=== PATIENT | female | born 1945 | race Caucasian/White ===

== ENCOUNTER 2016-11-25 18:09 | Emergency (ER) | payer MEDICARE, MEDICAID ==
[2016-11-25 18:45] LABS: MEAN CORPUSCULAR HGB CONC 33.2 pg (28.0-36.0)
[2016-11-25 18:57] LABS: % BASOPHILS 0.4 % (0.0-2.0); % EOSINOPHILS 0.4 % (0.0-5.0); % LYMPHOCYTES 8.2 % (20.0-50.0); % MONOCYTES 6.6 % (2.0-10.0); % NEUTROPHILS 84.4 % (40.0-80.0); HEMATOCRIT 45.9 % (35.0-45.0); HEMOGLOBIN 15.3 gm/dL (11.7-16.1); MEAN CORPUSCULAR HEMOGLOBIN 29.9 pg (27.0-31.0); MEAN PLATELET VOLUME 7.7 fl; NEUTROPHILE ABSOLUTE 10.2 Th/cmm (1.8-8.0); PLATELET COUNT 267 Th/cmm (150-400); RED CELL DISTRIBUTION WIDTH 13.1 % (11.5-20.0)
[2016-11-25 19:04] LABS: INR 1.03 (0.5-1.4); PROTHROMBIN TIME (TEST) 10.7 SECONDS (9.5-11.5)
[2016-11-25 19:07] LABS: ALB/GLOB RATIO 1.8 (1.0-1.8); ALKALINE PHOSPHATASE 86 U/L (34-104); ANION GAP 11.9 (7.0-16.0); BILIRUBIN,TOTAL 1.4 mg/dL (0.3-1.0); BUN - UREA NITROGEN 14 mg/dL (7-25); CALCIUM SERUM 9.6 mg/dL (8.6-10.3); CARBON DIOXIDE 25.2 mEq/L (21.0-31.0); CHLORIDE 110 mEq/L (98-107); GLUCOSE 118 mg/dL (70-105); POTASSIUM SERUM 4.1 mEq/L (3.5-5.1); SGOT 35 U/L (13-39); SGPT/ALT 32 U/L (7-52); SODIUM SERUM 143 mEq/L (136-145)
--- NOTE | 2016-11-25 21:07 | ED Physician Chart ---
ED Chief Complaint/HPI - Patient Information Date Seen:: 11/25/16 Time Seen:: 18:20 Chief Complaint:: RIGHT KNEE PAIN History of Present Illness:: THIS IS A 71 YO FEMALE WHO SLIPPED AND FELL EARLIER TODAY INJURING HER RIGHT KNEE. SHE DENIES ALL OTHER INJURY. SHE DENIES DIABETES, HYPERTENSIO AND HEART DISEASE. Allergies:: Allergies Allergy/AdvReac Type Severity Reaction Status Date / Time No Known Allergies Allergy Verified 11/25/16 18:10 Vitals:: Vital Signs - 8 hr 11/25/16 18:11 Temp 100.8 F HR 93 RR 16 BP 159/96 O2 Sat % 95 Historian:: Patient Review:: Nurse's Note Reviewed ED Review of Systems - Review of Systems General/Constitutional: No fever, No chills, No weight loss, No weakness, No diaphoresis, No edema, No loss of appetite Skin: No skin lesions, No rash, No bruising Head: No headache, No light-headedness Eyes: No loss of vision, No pain, No diplopia ENT: No earache, No nasal drainage, No sore throat, No tinnitus Neck: No neck pain, No swelling, No thyromegaly, No stiffness, No mass noted Cardio Vascular: No chest pain, No palpitations, No PND, No orthopnea, No edema Pulmonary: No SOB, No cough, No sputum, No wheezing GI: No nausea, No vomiting, No diarrhea, No pain, No melena, No hematochezia, No constipation, No hematemesis G/U: No dysuria, No frequency, No hematuria Musculoskeletal: Bone or joint pain (RIGHT KNEE PAIN ), No back pain, No muscle pain Endocrine: No polyuria, No polydipsia Psychiatric: No prior psych history, No depression, No anxiety, No suicidal ideation Hematopoietic: No bruising, No lymphadenopathy Allergic/Immuno: No urticaria, No angioedema Neurological: No syncope, No focal symptoms, No weakness, No paresthesia, No headache, No seizure, No dizziness, No confusion, No vertigo ED Past Medical History - Past Medical History Obtainable: Yes Past Medical History: No significant medical hx Family History: None Social History: Non Smoker, No Alcohol, No Drug Use Surgical History: None Psychiatricy History: None Medication: Reviewed ED Physical Exam - Physical Examination General/Constitutional: Awake, Well-developed, well-nourished, Alert, No distress, GCS 15, Non-toxic appearing, Ambulatory Head: Atraumatic Eyes: Lids, conjuctiva normal, PERRL, EOMI Skin: Nl inspection, No rash, No skin lesions, No ecchymosis, Well hydrated, No lymphadenopathy ENMT: External ears, nose nl, Nasal exam nl, Lips, teeth, gums nl Neck: Nontender, Full ROM w/o pain, No JVD, No nuchal rigidity, No bruit, No mass, No stridor Respiratory: Nl effort/Exclusion, Clear to Auscultation, No Wheeze/Rhonchi/Rales Cardio Vascular: RRR, No murmur, gallop, rubs, NL S1 S2 GI: No tenderness/rebounding/guarding, No organomegaly, No hernia, Normal BS's, Nondistended, No mass/bruits, No McBurney tenderness : No CVA tenderness Extremities: Full ROM, normal strength in all extremities, No edema, Normal digits & nails Other Extremities comments:: THERE IS SOME MILD TENDERNESS OF THE RIGHT KNEE CAP AREA WITH NORMAL ROM. THE PATIENT ALSO WAS ABLE TO AMBULATE ON HER KNEE WITHOUT DIFFICULTY Neuro/Psych: Alert/oriented, DTR's symmetric, Normal sensory exam, Normal motor strength, Judgement/insight normal, Mood normal, Normal gait, No focal deficits Misc: normal gait, Normal back, No paraspinal tenderness ED Labs/Radiology/EKG Results - Lab Results Results: Laboratory Tests 11/25/16 11/25/16 11/25/16 18:30 18:30 18:30 WBC 12.0 H RBC 5.10 Hgb 15.3 Hct 45.9 H MCV 90.0 MCH 29.9 MCHC Differential 33.2 RDW 13.1 Plt Count 267 MPV 7.7 Neutrophils % 84.4 H Lymphocytes % 8.2 L Monocytes % 6.6 Eosinophils % 0.4 Basophils % 0.4 PT 10.7 INR 1.03 Sodium 143 Potassium 4.1 Chloride 110 H Carbon Dioxide 25.2 Anion Gap 11.9 BUN 14 Creatinine 1.0 Est GFR ( Amer) TNP Est GFR (Non-Af Amer) TNP BUN/Creatinine Ratio 14.0 Glucose 118 H Whole Bld Lactic Acid Calcium 9.6 Total Bilirubin 1.4 H AST 35 ALT 32 Alkaline Phosphatase 86 Troponin I Total Protein 6.8 Albumin 4.4 Globulin 2.4 Albumin/Globulin Ratio 1.8 TSH 11/25/16 11/25/16 11/25/16 18:30 18:30 18:30 WBC RBC Hgb Hct MCV MCH MCHC Differential RDW Plt Count MPV Neutrophils % Lymphocytes % Monocytes % Eosinophils % Basophils % PT INR Sodium Potassium Chloride Carbon Dioxide Anion Gap BUN Creatinine Est GFR ( Amer) Est GFR (Non-Af Amer) BUN/Creatinine Ratio Glucose Whole Bld Lactic Acid 1.65 Calcium Total Bilirubin AST ALT Alkaline Phosphatase Troponin I 0.02 Total Protein Albumin Globulin Albumin/Globulin Ratio TSH 0.96 - Radiology Results Results: RIGHT KNEE X-RAY = NAD ED Assessment - Assessment General Assessment: CONTUSION OF THE RIGHT KNEE ED Septic Shock - . Is Septic Shock (SBP<90, OR Lactate>4 mmol\L) present?: No - <6hrs of presentation: Vital Signs: Vital Signs - 8 hr 11/25/16 18:11 Temp 100.8 F HR 93 RR 16 BP 159/96 O2 Sat % 95 ED Reassessment (Disposition) - Reassessment Reassessment Condition:: Improved - Diagnosis Diagnosis:: CONTUSION OF THE RIGHT KNEE LEUCOCYTOSIS - Aftercare/Follow up Instructions Aftercare/Follow-Up Instructions:: Counseled pt regarding lab results/diagnosis & need follow up, Refer to Discharge Instructions, Counseled pt & family regarding lab results/diagnosis & need follow up - Patient Disposition Discharge/Transfer:: Home Condition at Disposition:: Improved ED Discharge Plan - Patient Disposition Admit/Discharge/Transfer: PT DISCHARGED HOME Condition at Disposition: Improved
--- NOTE | 2016-11-26 08:33 | Diagnostic Imaging Report ---
Right knee 3 views Indication: Trauma Comparison: none Findings: Bipartite patella versus chronic fracture involving the superolateral aspect of the patella is noted. Mild degenerative changes are noted. No evidence of an acute fracture or joint effusion. No significant focal soft tissue swelling. Impression: Bipartite patella versus chronic fracture involving the superolateral aspect of the patella. Otherwise no evidence of an acute fracture. Please correlate with clinical findings and old exams. Mild degenerative changes. In the setting of trauma, if clinical symptoms persist and there is continued concern for an occult fracture, follow up exams in 5-7 days is suggested.
== END 2016-11-25 21:07 | disposition home or self-care (01) ==
LOC: ER 18:09
DX: S80.01XA Contusion of right knee, initial encounter (principal); D72.829 Elevated white blood cell count, unspecified; W01.0XXA Fall on same level from slipping, tripping and stumbling without subsequent striking against object, initial encounter; Y93.89 Activity, other specified; Y92.89 Other specified places as the place of occurrence of the external cause; Y99.8 Other external cause status
CPT/HCPCS: 36415-UA; 73562-TC-RT; 80053-TC; 83605; 84443-TC; 84484-TC; 85025-TC; 85610-TC; 86592-TC

== ENCOUNTER 2016-11-26 02:25 | Inpatient (IN) | payer MEDICARE, MEDICAID ==
--- NOTE | 2016-11-26 03:27 | ED Physician Chart ---
ED Chief Complaint/HPI - Patient Information Date Seen:: 11/26/16 Time Seen:: 02:44 Chief Complaint:: CONFUSED History of Present Illness:: THIS IS A 71 YO FEMALE BIB THE POLICE WITH A STORY OF BEING UNABLE TO CARE FOR HERSELF. THE POLICE FOUND VERY POOR LIVING CONDITIONS AT HER HOME. THOSE LIVING AROUND HER REPORTS THAT SHE IS EATING OUT OF DUMPSTERS AND IS UNABLE TO CARE FOR HERSELF. SHE WAS BIB EMS EARLIER TODAY BECAUSE OF A SLIP AND FALL COMPLAINING OF A RIGHT KNEE INJURY. SHE HAD AN ELEVATED WHITE COUNT AND COULD NOT GIVE US URINE. SHE WAS VERY HUNGRY AND ATE MULTIPLE SANDWICHES. HER SON WAS HERE DURING CARE FOR HER TREATMENT EARLIER. SHE HAVE PERIODS OF CONFUSION AND TROUBLE THINKING. Allergies:: Allergies Allergy/AdvReac Type Severity Reaction Status Date / Time No Known Allergies Allergy Verified 11/25/16 18:10 Vitals:: Vital Signs - 8 hr 11/26/16 02:40 Temp 100.0 F HR 88 RR 19 BP 145/77 O2 Sat % 94 Historian:: Patient, EMS Review:: Nurse's Note Reviewed, Old Chart Reviewed ED Review of Systems - Review of Systems General/Constitutional: No fever, No chills, No weight loss, No weakness, No diaphoresis, No edema, No loss of appetite Skin: No skin lesions, No rash, No bruising Head: No headache, No light-headedness Eyes: No loss of vision, No pain, No diplopia ENT: No earache, No nasal drainage, No sore throat, No tinnitus Neck: No neck pain, No swelling, No thyromegaly, No stiffness, No mass noted Cardio Vascular: No chest pain, No palpitations, No PND, No orthopnea, No edema Pulmonary: No SOB, No cough, No sputum, No wheezing GI: No nausea, No vomiting, No diarrhea, No pain, No melena, No hematochezia, No constipation, No hematemesis G/U: No dysuria, No frequency, No hematuria Musculoskeletal: Bone or joint pain (RIGHT KNEE PAIN), No back pain, No muscle pain Endocrine: No polyuria, No polydipsia Psychiatric: No prior psych history, No depression, No anxiety, No suicidal ideation Hematopoietic: No bruising, No lymphadenopathy Allergic/Immuno: No urticaria, No angioedema Neurological: No syncope, No focal symptoms, No weakness, No paresthesia, No headache, No seizure, No dizziness, No confusion, No vertigo ED Past Medical History - Past Medical History Obtainable: Yes Past Medical History: No significant medical hx Family History: None Social History: Non Smoker, No Alcohol, No Drug Use, Single Surgical History: Hysterectomy Psychiatricy History: None Family Medical History - Family Member Mother History Unknown: Yes ED Physical Exam - Physical Examination General/Constitutional: Awake, Well-developed, well-nourished, Alert, No distress, GCS 15, Non-toxic appearing, Ambulatory Head: Atraumatic Eyes: Lids, conjuctiva normal, PERRL, EOMI Skin: Nl inspection, No rash, No skin lesions, No ecchymosis, Well hydrated, No lymphadenopathy ENMT: External ears, nose nl, Nasal exam nl, Lips, teeth, gums nl Neck: Nontender, Full ROM w/o pain, No JVD, No nuchal rigidity, No bruit, No mass, No stridor Respiratory: Nl effort/Exclusion, Clear to Auscultation, No Wheeze/Rhonchi/Rales Cardio Vascular: RRR, No murmur, gallop, rubs, NL S1 S2 GI: No tenderness/rebounding/guarding, No organomegaly, No hernia, Normal BS's, Nondistended, No mass/bruits, No McBurney tenderness : No CVA tenderness Extremities: No tenderness or effusion, Full ROM, normal strength in all extremities, No edema, Normal digits & nails Neuro/Psych: Alert/oriented, DTR's symmetric, Normal sensory exam, Normal motor strength, Judgement/insight normal, Mood normal, Normal gait, No focal deficits Misc: normal gait, Normal back, No paraspinal tenderness ED Assessment - Assessment General Assessment: confusion ED Septic Shock - . Is Septic Shock (SBP<90, OR Lactate>4 mmol\L) present?: No - <6hrs of presentation: Vital Signs: Vital Signs - 8 hr 11/26/16 02:40 Temp 100.0 F HR 88 RR 19 BP 145/77 O2 Sat % 94 ED Reassessment (Disposition) - Diagnosis Diagnosis:: confusion - Aftercare/Follow up Instructions Notes:: THIS PATIENT WILL NEED A SOCIAL SERVICE CONSULT FOR [facility] PLACEMENT. - Patient Disposition Discharge/Transfer:: Acute Care w/in this hosp Admitted to:: [facility]/Surg Admitting Medical Physician:: Ki Gilliam Condition at Disposition:: Unchanged ED Discharge Plan - Patient Disposition Admit/Discharge/Transfer: Acute Care w/in this hosp Condition at Disposition: Unchanged Instructions: Psychosis
--- NOTE | 2016-11-26 09:02 | Diagnostic Imaging Report ---
CHEST X-RAY: AP view INDICATION: Congestive COMPARISON: None FINDINGS: Mild chronic changes are noted. There is no focal consolidation or pleural effusions The heart is normal in size. Degenerative changes spine are noted. IMPRESSION: No focal consolidation or evidence of CHF.
[2016-11-26 09:43] VITALS: BP 140/80
[2016-11-26] MEDS ORDERED: Magnesium Hydroxide (MOM) 30 mL UDC PO PRN (09:47)
[2016-11-26] MEDS ORDERED: Maalox 30 mL Cup PO PRN (09:47)
[2016-11-26 12:04] LABS: URINE BILIRUBIN SMALL (NEGATIVE); URINE COLOR YELLOW; URINE GLUCOSE (UA) NEGATIVE (NEGATIVE)
[2016-11-26 12:05] LABS: URINE KETONE TRACE mg/dL (NEGATIVE)
[2016-11-26 12:06] LABS: URINE BLOOD SMALL (NEGATIVE); URINE PH 5.5 (4.6 - 8.0); URINE PROTEIN TRACE mg/dL (NEGATIVE)
[2016-11-26 12:09] LABS: URINE EPITHELIAL CELLS OCCASIONAL /lpf (FEW)
[2016-11-26 12:10] LABS: URINE AMORPHOUS SEDIMENT MODERATE URATES (NONE SEEN); URINE BACTERIA MANY /hpf (NONE SEEN)
--- NOTE | 2016-11-27 02:48 | Psychosocial Evaluation ---
DATE OF SERVICE: 11/26/2016 IDENTIFYING DATA: The patient is a 71-year-old woman admitted here on a 5150 for being gravely disabled. CHIEF COMPLAINT: "I do not know." HISTORY OF PRESENT ILLNESS: This is the first psychiatric hospitalization to [facility] for this patient who has been admitted on a 5150 as being gravely disabled as per the information obtained. Police received a call from a neighbor who was concerned for the patient's safety. She was reported to be sitting outside in a chair for hours returning from the hospital earlier. The caller told the patient had no one to help her and take care of her and the patient is reported to have been out of the [employer] dumpsters and the patient has been evaluated. The patient could not remember the last time she had anything to eat. The patient is very confused and disheveled at this time. The patient is not able to provide much of information. PAST PSYCHIATRIC HISTORY: Details are not known. MEDICAL HISTORY: Physical examination is requested to be done by Dr. Gilliam. SUBSTANCE ABUSE HISTORY: None. PHYSICAL OR SEXUAL ABUSE HISTORY: None. LEGAL PROBLEMS: None at this time. MENTAL STATUS EXAMINATION: The patient is a 71-year-old, looking her stated age, superficially cooperative. Eye contact is fair. Mood is irritable. Affect is constricted. Insight and judgment at this time are noted to be very much impaired. Impulse control seems to be poor. Coping skills are also noted to be poor. The patient has not been able to contract for safety. The patient, however, is denying any auditory hallucinations. No delusions are noted at this time. The patient has been fully aware that she is in the hospital. The patient, however, has not been able to provide much of information. Attention span and concentration are noted to be poor at this time. DIAGNOSTIC IMPRESSION: AXIS I: A. Psychotic disorder, not otherwise specified. B. Depressive disorder, not otherwise specified. AXIS II: None. AXIS III: As per Dr. Gilliam. IMMEDIATE TREATMENT PLAN: The patient is going to be observed on inpatient unit, provided with supportive psychotherapy. The patient is going to be started on the p.r.n. doses of medications. Once stabilized, the patient is going to be discharged to [facility] to be followed up on an outpatient basis. JOB# [id number]
[2016-11-27] MEDS: Multivitamin Tab PO SCH (08:21)
--- NOTE | 2016-11-27 10:23 | History & Physical ---
ADMIT DATE: PATIENT IDENTIFICATION: A 71-year-old female. CHIEF COMPLAINT: "I should not be here in the first place." HISTORY OF PRESENT ILLNESS: A 71-year-old female admitted, initially presented to Emergency Room on 11/25/2016, for evaluation of right knee pain where the patient was evaluated by Emergency Room MD, and the patient was sent home, but few hours later the patient came back to Emergency Room after [facility] Department notice received a call that the patient was sitting in the chair for hours, and upon interview it was noted that the patient was eating food from the dumpsters. The patient was unable to take care of herself. The patient was admitted to Geropsych Unit for further care. PAST MEDICAL HISTORY: The patient's past medical history as per patient's account is negative for diabetes, hypertension, kidney disease, liver disease. MEDICATIONS AT HOME: None. ALLERGIES: None. SOCIAL HISTORY: She lives by herself in a mobile home. The patient has no smoking cigarette, alcohol or drug use. FAMILY MEDICAL HISTORY: Negative for diabetes, hypertension, kidney disease, or liver disease. REVIEW OF SYSTEMS: The patient currently denies any headache, blurred vision, double vision, dysphagia, odynophagia, runny nose, stuffy nose, fever, chills, cough, chest pain, shortness of breath, palpitation, dizziness, nausea, vomiting, diarrhea, dysuria, hematuria, hematochezia, melena. No history of any seizure or syncopal episode. No weight loss or weight gain. PHYSICAL EXAMINATION: GENERAL: The patient is alert, awake, oriented, lying in the bed without any acute distress. VITAL SIGNS: Temperature 98, pulse is 74, respiratory rate 18, blood pressure is 110/70. SKIN: Warm to touch. HEENT: Normocephalic, atraumatic. Extraocular muscles are intact. Tongue was pink and coated. No oral lesion, no exudate. No sinus tenderness. External auditory canal and tympanic membranes are well visualized. NECK: Supple, no JVD, no hepatojugular reflux. No lymphadenopathy, thyromegaly or carotid bruit. HEART: Both heart sounds are regular. No S3, no S4, no murmur. CHEST: Lung equal in expansion, no wheezing, no crackles. ABDOMEN: Soft. No guarding, no rigidity. Liver and spleen palpable. No palpable mass. EXTREMITIES: No edema, no cyanosis. NEUROLOGIC: Alert, awake, oriented to time, place, and person, 2-12 cranial nerves are intact. Power in upper and lower extremities 5-. Sensation to touch intact. [place] in both toes are going down. No cerebral sign. AVAILABLE DIAGNOSTIC DATA: Urinalysis consistent with urinary tract infection. White count 12, hemoglobin 15.3, platelet count of 267. Chemistry panel is unremarkable, except total bilirubin 1.4. PT and PTTs are also normal. Serology and RPR was nonreactive. CLINICAL IMPRESSION: 1. Urinary tract infection. 2. Obesity. 3. Degenerative joint disease. 4. Unable to take care of herself as per Social Service, as well as Emergency Room MD note. PLAN: The patient is admitted under the care of Dr. Kurtz. I will let him decide about the patient's mental status, as well as was social placement. The patient will be placed on p.o. antibiotic for urinary tract infection. The patient will be encouraged to drink plenty of fluid. The patient will be given fall precaution as well. The patient will be seen by us as scheduled. JOB# [id number]
--- NOTE | 2016-11-28 00:16 | Progress Notes ---
DATE: 11/27/2016 SUBJECTIVE: Staff was spoken to. The patient is interviewed. Mood is noted to be irritable. Affect is constricted. Insight and judgment at this time are noted to be very much impaired. Impulse control is noted to be poor. The patient is screaming and yelling. 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 The patient has no insight into her illness. The patient is stating that she her a son coming in no time and she should be out of here. The patient has not been able to contract for safety. PLAN: In view of her aggressive behavior, it was decided to start the patient on haloperidol 1 mg b.i.d. and follow the patient with supportive therapy. I encouraged the patient to verbalize the concerns rather than to act on. The patient's information is going to be discussed with the embedded case manager and the family session is going to be requested. JOB# [id number]
[2016-11-28] MEDS: Multivitamin Tab PO SCH (08:54)
--- NOTE | 2016-11-29 01:32 | Progress Notes ---
DATE: 11/28/2016 SUBJECTIVE: Staff was spoken to. The patient is interviewed. Mood is noted to be irritable. Affect is constricted. The patient was very angry at the neighbor who called the police. The patient is stating that people should focus on their business and should not focused on her. Coping skills are noted to be very poor at this time. No side effects to the medications are noted. ASSESSMENT: The patient is still angry and upset. PLAN: To continue the patient with supportive therapy and proceed with family session. JOB# [id number]
[2016-11-29] MEDS: Multivitamin Tab PO SCH (08:21)
--- NOTE | 2016-11-29 09:00 | General Progress Note ---
Subjective - Review of Systems Subjective: Patient is seen and examined. Patient is very upset. no new complaints. Objective - Results Recent Labs: Laboratory Last Values POC Glucose 84 MG/DL (70 - 105) 11/26/16 18:05 Urine Source CLEAN C 11/26/16 08:40 Urine Color YELLOW 11/26/16 08:40 Urine Clarity CLOUDY (CLEAR) H 11/26/16 08:40 Urine pH 5.5 (4.6 - 8.0) 11/26/16 08:40 Ur Specific [place] > 1.030 (1.005-1.030) H 11/26/16 08:40 Urine Protein TRACE mg/dL (NEGATIVE) 11/26/16 08:40 Urine Glucose (UA) NEGATIVE mg/dL (NEGATIVE) 11/26/16 08:40 Urine Ketones TRACE mg/dL (NEGATIVE) 11/26/16 08:40 Urine Blood SMALL (NEGATIVE) H 11/26/16 08:40 Urine Nitrate POSITIVE (NEGATIVE) H 11/26/16 08:40 Urine Bilirubin SMALL (NEGATIVE) H 11/26/16 08:40 Urine Ictotest NEGATIVE (NEGATIVE) 11/26/16 08:40 Urine Urobilinogen 1.0 E.U./dL (0.2 - 1.0) 11/26/16 08:40 Ur Leukocyte Esterase MODERATE (NEGATIVE) H 11/26/16 08:40 Urine RBC 5-10 /hpf (0-5) H 11/26/16 08:40 Urine WBC 6-10 /hpf (0-5) H 11/26/16 08:40 Ur Epithelial Cells OCCASIONAL /lpf (FEW) 11/26/16 08:40 Amorphous Sediment MODERATE URATES (NONE SEEN) 11/26/16 08:40 Urine Bacteria MANY /hpf (NONE SEEN) 11/26/16 08:40 - Physical Exam Vitals and I&O: Vital Signs Temp 98 F 11/29/16 06:43 Pulse 62 11/29/16 06:43 Resp 18 11/29/16 06:43 BP 152/74 11/29/16 06:43 Pulse Ox 97 11/29/16 06:43 Intake & Output 11/28/16 11/29/16 11/29/16 18:59 06:59 18:59 Intake Total 120 Balance 120 Intake: Oral 120 Other: # Voids 3 Active Medications: Current Medications Acetaminophen (Tylenol) 650 mg PO Q4HR PRN PRN Reason: Mild Pain / Temp above 100 Stop: 01/25/17 09:46 Al Hydrox/Mg Hydrox/Simethicone (Maalox) 30 ml PO Q4HR PRN PRN Reason: GI DISTRESS Stop: 01/25/17 09:46 Haloperidol (Haldol) 1 mg PO BID JOE PRN Reason: Protocol Stop: 01/26/17 16:59 Last Admin: 11/29/16 08:21 Dose: 1 mg Lorazepam (Ativan) 0.5 mg PO Q4HR PRN; Protocol PRN Reason: Anxiety Stop: 12/26/16 09:46 Magnesium Hydroxide (Milk Of Magnesia) 30 ml PO HS PRN PRN Reason: Constipation Multivitamins/Vitamin C (Theragran) 1 tab PO DAILY JOE Stop: 01/26/17 08:59 Last Admin: 11/29/16 08:21 Dose: 1 tab Zolpidem Tartrate (Ambien) 5 mg PO HS PRN PRN Reason: Insomnia Stop: 01/25/17 09:46 General: Alert, No acute distress HEENT: Atraumatic, PERRLA, EOMI Neck: Supple Cardiovascular: Regular rate, Normal S1, Normal S2 Lungs: Clear to auscultation Abdomen: Bowel sounds, Soft Extremities: Other (No edema.) Assessment/Plan - Problem List Patient Problems: All Active Problems FALL WITH RIGHT KNEE TRAUMA (Acute) - Assessment Assessment: UTI DJD Obesity Psych disorders. - Plan Plan: Start PO Cipro. Psych meds. Psych follow up. General Nursing care. Continue current care. Medically stable.
--- NOTE | 2016-11-30 01:41 | Progress Notes ---
DATE: 11/29/2016 Staff was spoken to. The patient is interviewed. Mood is noted to be irritable. Affect is constricted. Insight and judgment are very much impaired. Impulse control seems to be limited. The patient has been frustrated for being in here. The patient is stating that she has contacted her son and is waiting for her son to come in here. ASSESSMENT: The patient is still impulsive and depressed. PLAN: To continue the patient with supportive therapy. I encouraged the patient to verbalize the concerns rather than to act out. JOB# [id number]
[2016-11-30] MEDS: Multivitamin Tab PO SCH (08:56)
[2016-11-30] MEDS ORDERED: Probiotic Screen MC PRN (14:58)
[2016-12-01] MEDS: Multivitamin Tab PO SCH (09:07)
[2016-12-01] MEDS: Lactobacillus Rhamnosus 10 Billion CFU Capsule PO SCH (09:07)
--- NOTE | 2016-12-01 20:00 | Progress Notes ---
DATE: 11/30/2016 SUBJECTIVE: Staff was spoken to. The patient is interviewed. Mood is noted to be irritable. Affect is constricted. Coping skills are noted to be still poor. The patient has paranoia. She denies any recent hallucinations, but the patient has been still irritable and angry. The patient is stating that she has been trying to get in touch with her son. The patient is currently on Haldol 1 mg b.i.d. and is able to tolerate the medication. ASSESSMENT: The patient is still psychotic and impulsive. PLAN: To continue the patient with the supportive therapy. I encouraged the patient to verbalize the concerns rather than to act out. JOB# [id number]
--- NOTE | 2016-12-02 08:46 | General Progress Note ---
Subjective - Review of Systems Subjective: Patient is seen and examined. no new complaints. Objective - Results Recent Labs: Laboratory Last Values POC Glucose 84 MG/DL (70 - 105) 11/26/16 18:05 Urine Source CLEAN C 11/26/16 08:40 Urine Color YELLOW 11/26/16 08:40 Urine Clarity CLOUDY (CLEAR) H 11/26/16 08:40 Urine pH 5.5 (4.6 - 8.0) 11/26/16 08:40 Ur Specific [place] > 1.030 (1.005-1.030) H 11/26/16 08:40 Urine Protein TRACE mg/dL (NEGATIVE) 11/26/16 08:40 Urine Glucose (UA) NEGATIVE mg/dL (NEGATIVE) 11/26/16 08:40 Urine Ketones TRACE mg/dL (NEGATIVE) 11/26/16 08:40 Urine Blood SMALL (NEGATIVE) H 11/26/16 08:40 Urine Nitrate POSITIVE (NEGATIVE) H 11/26/16 08:40 Urine Bilirubin SMALL (NEGATIVE) H 11/26/16 08:40 Urine Ictotest NEGATIVE (NEGATIVE) 11/26/16 08:40 Urine Urobilinogen 1.0 E.U./dL (0.2 - 1.0) 11/26/16 08:40 Ur Leukocyte Esterase MODERATE (NEGATIVE) H 11/26/16 08:40 Urine RBC 5-10 /hpf (0-5) H 11/26/16 08:40 Urine WBC 6-10 /hpf (0-5) H 11/26/16 08:40 Ur Epithelial Cells OCCASIONAL /lpf (FEW) 11/26/16 08:40 Amorphous Sediment MODERATE URATES (NONE SEEN) 11/26/16 08:40 Urine Bacteria MANY /hpf (NONE SEEN) 11/26/16 08:40 - Physical Exam Vitals and I&O: Vital Signs Temp 98.2 F 12/02/16 06:25 Pulse 77 12/02/16 06:25 Resp 19 12/02/16 06:25 BP 150/75 12/02/16 06:25 Pulse Ox 97 12/02/16 06:25 Intake & Output 12/01/16 12/02/16 12/02/16 18:59 06:59 18:59 Intake Total 800 360 Balance 800 360 Intake: Oral 800 360 Other: # Voids 4 2 # Bowel Movements 1 0 Stool Characteristics Formed Active Medications: Current Medications Acetaminophen (Tylenol) 650 mg PO Q4HR PRN PRN Reason: Mild Pain / Temp above 100 Stop: 01/25/17 09:46 Al Hydrox/Mg Hydrox/Simethicone (Maalox) 30 ml PO Q4HR PRN PRN Reason: GI DISTRESS Stop: 01/25/17 09:46 Ciprofloxacin (Cipro) 250 mg PO BID JOE Stop: 01/28/17 08:59 Last Admin: 12/01/16 16:30 Dose: 250 mg Haloperidol (Haldol) 0.5 mg PO BID JOE PRN Reason: Protocol Stop: 01/26/17 16:59 Last Admin: 12/01/16 16:28 Dose: 0.5 mg Lactobacillus Rhamnosus (Culturelle) 1 each PO DAILY JOE Stop: 12/30/16 08:59 Last Admin: 12/01/16 09:07 Dose: 1 each Lorazepam (Ativan) 0.5 mg PO Q4HR PRN; Protocol PRN Reason: Anxiety Stop: 12/26/16 09:46 Magnesium Hydroxide (Milk Of Magnesia) 30 ml PO HS PRN PRN Reason: Constipation Miscellaneous (Probiotic Screen) 1 ea MC PRN PRN PRN Reason: PROTOCOL Stop: 01/29/17 14:57 Multivitamins/Vitamin C (Theragran) 1 tab PO DAILY [facility] Stop: 01/26/17 08:59 Last Admin: 12/01/16 09:07 Dose: 1 tab Zolpidem Tartrate (Ambien) 5 mg PO HS PRN PRN Reason: Insomnia Stop: 01/25/17 09:46 General: Alert, No acute distress HEENT: Atraumatic, PERRLA, EOMI Neck: Supple Cardiovascular: Regular rate, Normal S1, Normal S2 Lungs: Clear to auscultation Abdomen: Bowel sounds, Soft Extremities: Other (No edema.) Neurological: Normal gait, Normal speech, Strength at 5/5 X4 ext, Reflexes 2+ Assessment/Plan - Problem List Patient Problems: All Active Problems FALL WITH RIGHT KNEE TRAUMA (Acute) - Assessment Assessment: UTI DJD Obesity Psych disorders. - Plan Plan: PO cipro. Psych meds. Psych follow up. General Nursing care. Continue current care. Medically stable. Nutritional Asmnt/Malnutr-PDOC - Dietary Evaluation Malnutrition Findings (Please click <Entered> for more info): Nutritional Asmnt/Malnutrition Start: 11/29/16 14: 11 Text: Status: Complete Freq: Document 11/29/16 15:01 EULALIO (Rec: 11/29/16 15:24 [id number] [email or web address]) Nutritional Asmnt/Malnutrition Patient General Information Nutritional Screening Moderate Risk Screening Diagnosis Psychotic disorder, depressive disorder Pertinent Medical Hx/Surgical Hx Negative for DM, HTN, kidney disease, liver disease. Subjective Information 71 year old female from home/ trailer. Spoke to pt in wheelchair in room. Observed breakfast tray untouched on desk. Pt is upset regarding being hospitalized at [place], stating she is hungry but refusing to eat. Control Clerk attempted to obtain pt's food preferences, pt did not elaborate. Pt reported usually great appetite, cooks for self at home. Pt appeared overwiehgt/obses, no wasting noted. Current Diet Order/ Nutrition Support Regular Pertinent Medications Haldol, MOM, Theragran Pertinent Labs Reviewed. Nutritional Hx/Data Height 1.68 m Height (Calculated Centimeters) 167.6 Current Weight (lbs) 95.254 kg Weight (Calculated Kilograms) 95.3 Weight (Calculated Grams) 66318.4 [place] Body Weight 130 Weight Status Obese GI Symptoms Skin Integrity/Comment: Jorge 17. Dryness, bug bites. Current %PO Fair (50-74%) Estimated Nutritional Goals BEE in Kcals: Adj wt of IBW Calories/Kcals/Kg AdjBW 150lb/68.2kg Kcals Calculated 1705-2046kcal (25-30kcal/kg) Protein: Adj wt of IBW Protein Calculated 68g (1g/kg) Fluid: ml 1705-2046ml (1ml/kcal) Nutritional Problem 1. Problem Problem Inadequate oral food beverage intake related to Etiology cognition/mood aeb Signs/Symptoms: refused lunch yesterday and breakfast today due to upset being hospitalized Intervention/Recommendation Comments 1. Continue with current diet order. Pt appeared to be refusing meals due to upset regarding being hospitalized. Nursing staff to explain importance of nutrition and encourage meals. Expected Outcomes/Goals Expected Outcomes/Goals 1. PO intake to meet at least 75% of estimated nutritional needs.
[2016-12-02] MEDS: Lactobacillus Rhamnosus 10 Billion CFU Capsule PO SCH (09:05)
[2016-12-02] MEDS: Multivitamin Tab PO SCH (09:05)
--- NOTE | 2016-12-02 10:32 | Progress Notes ---
DATE: 12/01/2016 SUBJECTIVE: Staff was spoken to. The patient is interviewed. Mood is noted to be depressed. Affect is constricted. The patient is stating that she lives in [facility] and she has been waiting for her son, but he has not shown up so far. The patient's coping skills are noted to be poor at this time. Insight and judgment are also noted to be very much impaired. The patient has been too sleep with 1 mg twice a day of the haloperidol and even though the patient is paranoid, but no clear command hallucinations are reported and hence the Haldol is going to be decreased to 0.5 mg twice a day and the patient is going to be followed up with the supportive therapy. [facility]# [id number]
--- NOTE | 2016-12-03 04:58 | Progress Notes ---
DATE: 12/02/2016 SUBJECTIVE: Staff was spoken to. The patient is interviewed. Mood is noted to be anxious. The patient is stating that she has been waiting for her son. He has not shown up yet. Coping skills are noted to be improving. Paranoia is noted, but patient has been very angry at the neighbors who had called the police. ASSESSMENT: The patient is stabilizing. PLAN: To continue the patient with the current medications and work with the ed case manager with regards to establishing a connection with her son and possibly discharging the patient back to home if ____. Appropriate at this time. JOB# [id number]
--- NOTE | 2016-12-03 09:12 | General Progress Note ---
Subjective - Review of Systems Subjective: Patient is seen and examined. no new complaints. Objective - Results Recent Labs: Laboratory Last Values POC Glucose 84 MG/DL (70 - 105) 11/26/16 18:05 Urine Source CLEAN C 11/26/16 08:40 Urine Color YELLOW 11/26/16 08:40 Urine Clarity CLOUDY (CLEAR) H 11/26/16 08:40 Urine pH 5.5 (4.6 - 8.0) 11/26/16 08:40 Ur Specific [place] > 1.030 (1.005-1.030) H 11/26/16 08:40 Urine Protein TRACE mg/dL (NEGATIVE) 11/26/16 08:40 Urine Glucose (UA) NEGATIVE mg/dL (NEGATIVE) 11/26/16 08:40 Urine Ketones TRACE mg/dL (NEGATIVE) 11/26/16 08:40 Urine Blood SMALL (NEGATIVE) H 11/26/16 08:40 Urine Nitrate POSITIVE (NEGATIVE) H 11/26/16 08:40 Urine Bilirubin SMALL (NEGATIVE) H 11/26/16 08:40 Urine Ictotest NEGATIVE (NEGATIVE) 11/26/16 08:40 Urine Urobilinogen 1.0 E.U./dL (0.2 - 1.0) 11/26/16 08:40 Ur Leukocyte Esterase MODERATE (NEGATIVE) H 11/26/16 08:40 Urine RBC 5-10 /hpf (0-5) H 11/26/16 08:40 Urine WBC 6-10 /hpf (0-5) H 11/26/16 08:40 Ur Epithelial Cells OCCASIONAL /lpf (FEW) 11/26/16 08:40 Amorphous Sediment MODERATE URATES (NONE SEEN) 11/26/16 08:40 Urine Bacteria MANY /hpf (NONE SEEN) 11/26/16 08:40 - Physical Exam Vitals and I&O: Vital Signs Temp 98.1 F 12/03/16 06:20 Pulse 69 12/03/16 06:20 Resp 20 12/03/16 06:20 BP 69/20 12/03/16 06:20 Pulse Ox 97 12/03/16 06:20 Intake & Output 12/02/16 12/03/16 12/03/16 18:59 06:59 18:59 Intake Total 1800 120 Balance 1800 120 Intake: Oral 1800 120 Other: # Voids 4 3 # Bowel Movements 0 0 Active Medications: Current Medications Acetaminophen (Tylenol) 650 mg PO Q4HR PRN PRN Reason: Mild Pain / Temp above 100 Stop: 01/25/17 09:46 Al Hydrox/Mg Hydrox/Simethicone (Maalox) 30 ml PO Q4HR PRN PRN Reason: GI DISTRESS Stop: 01/25/17 09:46 Ciprofloxacin (Cipro) 250 mg PO BID JOE Stop: 01/28/17 08:59 Last Admin: 12/02/16 16:36 Dose: 250 mg Haloperidol (Haldol) 0.5 mg PO BID JOE PRN Reason: Protocol Stop: 01/26/17 16:59 Last Admin: 12/02/16 16:38 Dose: 0.5 mg Lactobacillus Rhamnosus (Culturelle) 1 each PO DAILY JOE Stop: 12/30/16 08:59 Last Admin: 12/02/16 09:05 Dose: 1 each Lorazepam (Ativan) 0.5 mg PO Q4HR PRN; Protocol PRN Reason: Anxiety Stop: 12/26/16 09:46 Magnesium Hydroxide (Milk Of Magnesia) 30 ml PO HS PRN PRN Reason: Constipation Miscellaneous (Probiotic Screen) 1 ea MC PRN PRN PRN Reason: PROTOCOL Stop: 01/29/17 14:57 Multivitamins/Vitamin C (Theragran) 1 tab PO DAILY [facility] Stop: 01/26/17 08:59 Last Admin: 12/02/16 09:05 Dose: 1 tab Zolpidem Tartrate (Ambien) 5 mg PO HS PRN PRN Reason: Insomnia Stop: 01/25/17 09:46 Last Admin: 12/02/16 21:01 Dose: 5 mg General: Alert, No acute distress HEENT: Atraumatic, PERRLA, EOMI Neck: Supple Cardiovascular: Regular rate, Normal S1, Normal S2 Lungs: Clear to auscultation Abdomen: Bowel sounds, Soft Extremities: Other (No edema.) Neurological: Normal gait, Normal speech, Strength at 5/5 X4 ext, Reflexes 2+ Assessment/Plan - Problem List Patient Problems: All Active Problems FALL WITH RIGHT KNEE TRAUMA (Acute) - Assessment Assessment: UTI DJD Obesity Psych disorders. - Plan Plan: PO cipro. Psych meds. Psych follow up. General Nursing care. Continue current care. Medically stable. Nutritional Asmnt/Malnutr-PDOC - Dietary Evaluation Malnutrition Findings (Please click <Entered> for more info): Nutritional Asmnt/Malnutrition Start: 11/29/16 14: 11 Text: Status: Complete Freq: Document 11/29/16 15:01 EULALIO (Rec: 11/29/16 15:24 [email or web address] [email or web address]) Nutritional Asmnt/Malnutrition Patient General Information Nutritional Screening Moderate Risk Screening Diagnosis Psychotic disorder, depressive disorder Pertinent Medical Hx/Surgical Hx Negative for DM, HTN, kidney disease, liver disease. Subjective Information 71 year old female from home/ trailer. Spoke to pt in wheelchair in room. Observed breakfast tray untouched on desk. Pt is upset regarding being hospitalized at [place], stating she is hungry but refusing to eat. Crossbar Switch Adjuster attempted to obtain pt's food preferences, pt did not elaborate. Pt reported usually great appetite, cooks for self at home. Pt appeared overwiehgt/obses, no wasting noted. Current Diet Order/ Nutrition Support Regular Pertinent Medications Haldol, MOM, Theragran Pertinent Labs Reviewed. Nutritional Hx/Data Height 1.68 m Height (Calculated Centimeters) 167.6 Current Weight (lbs) 95.254 kg Weight (Calculated Kilograms) 95.3 Weight (Calculated Grams) 12458.4 [place] Body Weight 130 Weight Status Obese GI Symptoms Skin Integrity/Comment: Jorge 17. Dryness, bug bites. Current %PO Fair (50-74%) Estimated Nutritional Goals BEE in Kcals: Adj wt of IBW Calories/Kcals/Kg AdjBW 150lb/68.2kg Kcals Calculated 1705-2046kcal (25-30kcal/kg) Protein: Adj wt of IBW Protein Calculated 68g (1g/kg) Fluid: ml 1705-2046ml (1ml/kcal) Nutritional Problem 1. Problem Problem Inadequate oral food beverage intake related to Etiology cognition/mood aeb Signs/Symptoms: refused lunch yesterday and breakfast today due to upset being hospitalized Intervention/Recommendation Comments 1. Continue with current diet order. Pt appeared to be refusing meals due to upset regarding being hospitalized. Nursing staff to explain importance of nutrition and encourage meals. Expected Outcomes/Goals Expected Outcomes/Goals 1. PO intake to meet at least 75% of estimated nutritional needs.
[2016-12-03] MEDS: Multivitamin Tab PO SCH (10:18)
[2016-12-03] MEDS: Lactobacillus Rhamnosus 10 Billion CFU Capsule PO SCH (10:18)
--- NOTE | 2016-12-04 03:33 | Progress Notes ---
DATE: 12/03/2016 SUBJECTIVE: Staff was spoken to. The patient is interviewed. Mood is noted to be depressed. Affect is constricted. The patient is stating that she has 4 children out of that 3 and she has only one son that son has not visited her yet. The patient is worried about his safety. Coping skills at this time are noted to be very poor. Sleep and appetite are also noted to be poor. The patient has been so far compliant with the medication. No side effects to the medications are noted. ASSESSMENT: The patient is less irritable today. PLAN: To continue the patient with the supportive therapy. I encouraged the patient to verbalize the concerns rather than to act out. [facility]# [id number]
[2016-12-04] MEDS: Multivitamin Tab PO SCH ×2 (09:11→09:14)
[2016-12-04] MEDS: Lactobacillus Rhamnosus 10 Billion CFU Capsule PO SCH ×2 (09:11→09:14)
--- NOTE | 2016-12-05 04:37 | Progress Notes ---
DATE: 12/04/2016 PSYCHIATRIC PROGRESS NOTE SUBJECTIVE: Staff was spoken to. The patient is interviewed. Mood is noted to be anxious and irritable. The patient's coping skills are noted to be poor. The patient is stating that she has been waiting for her son to come by and she is very much worried about him. The patient's sleep is noted to be improving. Appetite is noted to be fair. The patient, however, is not able to care for self. ASSESSMENT: The patient is still paranoid and angry and angry at the neighbor. PLAN: To continue the patient with supportive therapy and work with the continuous pillowcase cutter with regards to placement of this patient. JOB# [id number]
[2016-12-05] MEDS: Multivitamin Tab PO SCH (09:26)
[2016-12-05] MEDS: Lactobacillus Rhamnosus 10 Billion CFU Capsule PO SCH (09:26)
--- NOTE | 2016-12-05 23:16 | Progress Notes ---
DATE: 12/05/2016 SUBJECTIVE: Staff was spoken to. The patient is interviewed. Mood is noted to be depressed. Affect is constricted. The patient is stating that she is waiting for her son and he never showed up and patient has been anxious about it. The patient is stating that she is feeling depressed and does not know how to cope with the stress. The patient has been not presenting with any major behavioral problems at this time. ASSESSMENT: The patient is still depressed. PLAN: To start the patient with Celexa 10 mg to help her with the depression and I encouraged the patient to verbalize the concerns rather than to act out. Plan to continue the patient with the supportive therapy. JOB# [id number]
[2016-12-06] MEDS: Multivitamin Tab PO SCH (08:51)
[2016-12-06] MEDS: Lactobacillus Rhamnosus 10 Billion CFU Capsule PO SCH (08:51)
--- NOTE | 2016-12-07 05:28 | Progress Notes ---
DATE: 12/06/2016 SUBJECTIVE: Staff was spoken to. The patient is interviewed. Mood is noted to be irritable. Affect is constricted. The patient's insight and judgment at this time are noted to be impaired. Impulse control seems to be poor. Coping skills are also noted to be poor. The patient has been selectively taking the medications. The patient has been having difficult time to cope with the stress. ASSESSMENT: The patient is still impulsive and depressed. PLAN: To continue the patient with supportive therapy and followup. [facility]# [id number]
[2016-12-07] MEDS: Multivitamin Tab PO SCH (08:55)
[2016-12-07] MEDS: Lactobacillus Rhamnosus 10 Billion CFU Capsule PO SCH (08:55)
--- NOTE | 2016-12-07 23:30 | Progress Notes ---
DATE: 12/07/2016 PSYCHIATRIC PROGRESS NOTE SUBJECTIVE: Staff was spoken to. The patient is interviewed. Mood is noted to be irritable. Affect is constricted. The patient is still talking about ____ has been coming in to visit her. The patient is stating that she is very much worried. The patient is not able to care for self. The patient also has been refusing to comply with medication. She has been taking medications on and off. The patient feels depressed. Coping skills are noted to be very poor. The patient is stating that she does not want to go to any placement but wants to be there only because the patient has pain. software qa manager has been requested to arrange a family meeting with patient's son and then try to look for placement for this patient. The patient is currently on citalopram and Haldol. PLAN: To continue the patient with the current medications. I encouraged the patient to verbalize the concerns rather than to act out. [facility]# [id number]
[2016-12-08] MEDS: Lactobacillus Rhamnosus 10 Billion CFU Capsule PO SCH (09:17)
[2016-12-08] MEDS: Multivitamin Tab PO SCH (09:17)
--- NOTE | 2016-12-09 01:41 | Progress Notes ---
DATE: 12/08/2016 PSYCHIATRIC PROGRESS NOTE Staff was spoken to. The patient is interviewed. Mood is noted to be irritable. Affect is constricted. Insight and judgment are noted to be still impaired. Impulse control is noted to be limited. The patient has been insisting that she needs to be in here because she has no place to return to. The patient is also stating that she has been waiting for her son to come, but he has not shown up so far. ASSESSMENT: The patient is still depressed and awaiting placement. PLAN: To continue the patient with supportive therapy and follow. JOB# [id number]
[2016-12-09] MEDS: Lactobacillus Rhamnosus 10 Billion CFU Capsule PO SCH (09:04)
[2016-12-09] MEDS: Multivitamin Tab PO SCH (09:04)
--- NOTE | 2016-12-09 21:53 | Progress Notes ---
DATE: 12/09/2016 PSYCHIATRIC PROGRESS NOTE SUBJECTIVE: Staff was spoken to. The patient is interviewed. Mood is noted to be irritable. Affect is constricted. Insight and judgment at this time are noted to be improving. Impulse control seems to be fair. Coping skills are also noted to be fair. The patient has been having difficult time to cope with the stress, but the patient is not presenting with any threats to harm self or others. No side effects to the medications are noted. At this time, the patient is on antidepressant medication and has been able to verbalize the concerns. The patient has been having ____ symptoms, but the patient's behavior could be redirectable at this time. ASSESSMENT: The patient is stabilizing. PLAN: To discharge the patient today for followup on outpatient basis. [facility]# [id number]
== END 2016-12-09 16:30 | DRG 885 ==
LOC: ER 02:25 → GERO 09:10
PROVIDERS: ADMIT Psychiatry & Neurology Psychiatry; ATTEND Psychiatry & Neurology Psychiatry
DX: F29 Unspecified psychosis not due to a substance or known physiological condition (principal); N39.0 Urinary tract infection, site not specified; F32.9 Major depressive disorder, single episode, unspecified; M19.90 Unspecified osteoarthritis, unspecified site; E66.9 Obesity, unspecified; Z68.31 Body mass index [BMI] 31.0-31.9, adult; Z90.710 Acquired absence of both cervix and uterus
CPT/HCPCS: 36415-UA; 71010-TC; 73562-TC-RT; 80053-TC; 81001-TC; 82948-90; 83605; 84443-TC; 84484-TC; 85025-TC; 85610-TC; 86592-TC; J0696; Z7610